=== PATIENT | male | born 1940 | race Caucasian/White ===

== ENCOUNTER 2017-09-06 08:33 | Day surgery (SDC) | payer MEDICARE ==
[~2017-09-06] VITALS: Ht 180.3 cm; Wt 90.9 kg
[~2017-09-06 08:33] MED LIST: AMLO1CAP PO; AMLO1CAP10 PO; ASPI-621 PO; METO50TA82 PO; OMEP20TA62 PO; ROSU5TAB PO; TRAZ50TA18 PO
[2017-09-06 09:00] VITALS: BP 171/92
[2017-09-06] MEDS ORDERED: LACTATED RINGERS 1,000 ML IV SCH (09:04)
[2017-09-06] MEDS ORDERED: FENTANYL PF 250 MCG/5ML ONE (10:23)
[2017-09-06] MEDS ORDERED: EPINEPHRINE 1 MG/ML, 1ML ONE (10:23)
[2017-09-06] MEDS ORDERED: BUPIVACAINE/PF 0.5% ONE (10:23)
[2017-09-06] MEDS ORDERED: MIDAZOLAM 1 MG/ML, 2ML ONE (10:23)
[2017-09-06] MEDS ORDERED: PROPOFOL 10 MG/ML, 20ML ONE (10:24)
[2017-09-06] MEDS ORDERED: SUCCINYLCHOLINE 20 MG/ML, 10ML ONE (10:24)
[2017-09-06] MEDS ORDERED: DEXAMETHASONE 4 MG/ML, 1ML ONE (10:25)
[2017-09-06] MEDS ORDERED: ONDANSETRON 2MG/ML, 2ML ONE (10:25)
[2017-09-06] MEDS ORDERED: ROCURONIUM 10 MG/ML,10ML ONE (10:43)
[2017-09-06] MEDS ORDERED: CEFAZOLIN 1,000 MG ONE (10:43)
[2017-09-06] MEDS ORDERED: BUPIVACAINE/PF-EPI 0.5% 1:200K INFIL ONE (11:14)
[2017-09-06] MEDS ORDERED: FENTANYL PF 100 MCG/2ML ONE ×3 (11:22→13:04)
[2017-09-06] MEDS ORDERED: LORazepam 2 MG/ML, 1ML IVPush PRN (11:30)
[2017-09-06] MEDS ORDERED: HYDROmorphone 1 MG/ML, 1ML IV PRN (11:30)
[2017-09-06] MEDS ORDERED: ONDANSETRON 2MG/ML, 2ML IVPush PRN (11:30)
[2017-09-06] MEDS ORDERED: ALBUTEROL/IPRATROPIUM 2.5MG/0.5MG, 3 ML NPPB PRN (11:30)
[2017-09-06] MEDS ORDERED: EPHEDRINE 50 MG/ML, 1ML IVPush PRN (11:30)
[2017-09-06] MEDS ORDERED: PROMETHAZINE 25 MG/ML, 1ML IV PRN (11:30)
[2017-09-06] MEDS ORDERED: MIDAZOLAM 1 MG/ML, 2ML IV PRN (11:30)
[2017-09-06] MEDS ORDERED: LABETALOL 5MG/ML, 20ML IV PRN (11:30)
[2017-09-06] MEDS ORDERED: MEPERIDINE/PF 25MG/0.5ML IVPush PRN (11:30)
[2017-09-06] MEDS ORDERED: OXYcodone 5 MG/5 ML ORAL.SOL UDC PO PRN ×2 (11:30→12:00)
[2017-09-06] MEDS ORDERED: HYDROmorphone 2 MG/ML, 1ML IVPush PRN (12:00)
[2017-09-06] MEDS ORDERED: MEPERIDINE/PF 50 MG/ML ONE (12:01)
[2017-09-06] MEDS ORDERED: OXYcodone 5 MG/5 ML ORAL.SOL UDC ONE (12:01)
[2017-09-06] MEDS: FENTANYL PF 100 MCG/2ML IV PRN ×4 (12:03→13:05)
== END 2017-09-06 17:00 ==
LOC: OUT 08:33
PROVIDERS: ATTEND Surgery
DX: K40.90 Unilateral inguinal hernia, without obstruction or gangrene, not specified as recurrent (principal); K42.9 Umbilical hernia without obstruction or gangrene; I10 Essential (primary) hypertension; M10.9 Gout, unspecified; Z87.39 Personal history of other diseases of the musculoskeletal system and connective tissue; Z98.890 Other specified postprocedural states; Z98.49 Cataract extraction status, unspecified eye; Z96.60 Presence of unspecified orthopedic joint implant
CPT/HCPCS: 49650; 49652; C1781; J0171; J0330; J0690; J1100; J2175; J2250; J2405; J2704; J3010; J3490